=== PATIENT | male | born 1975 | race Caucasian/White ===

== ENCOUNTER 2018-03-01 13:55 | Emergency (ER) | payer BC ==
[~2018-03-01] VITALS: Ht 177.8 cm; Wt 79.4 kg
[2018-03-01 13:55] VITALS: BP 120/79
--- NOTE | 2018-03-01 14:42 | PHYS DOC ---
Past History Past Medical History: Other Past Surgical History: Other Alcohol Use: Heavy Drug Use: Marijuana Adult General Chief Complaint Chief Complaint: DENTAL PROBLEM HPI HPI 42-year-old male presents with right lower quadrant dental pain. The patient has had dental pain off and on for more than a year. He grinds his teeth. The patient woke up this morning with pain in the right lower quadrant. He is unsure if it is a wisdom tooth infection from dental decay. The patient has a surgery for anal fistula scheduled for this week and cannot take ibuprofen. He has been trying to take Tylenol without much effect. He denies fever or chills. Review of Systems Review of Systems Constitutional: Denies fever or chills [] Eyes: Denies change in visual acuity, redness, or eye pain [] HENT: Dental pain[] Respiratory: Denies cough or shortness of breath [] Cardiovascular: No additional information not addressed in HPI [] GI: Denies abdominal pain, nausea, vomiting, bloody stools or diarrhea [] : Denies dysuria or hematuria [] Musculoskeletal: Denies back pain or joint pain [] Integument: Denies rash or skin lesions [] Neurologic: Denies headache, focal weakness or sensory changes [] Endocrine: Denies polyuria or polydipsia [] All other systems were reviewed and found to be within normal limits, except as documented in this note. Allergies Allergies Allergies Coded Allergies Type Severity Reaction Last Updated Verified No Known Drug Allergies 03/01/18 No Physical Exam Physical Exam Constitutional: Well developed, well nourished, no acute distress, non-toxic appearance. [] HENT: Normocephalic, atraumatic, bilateral external ears normal, oropharynx moist, no oral exudates, nose normal. Poor dentition, dental caries a right lower molar, pain with palpation in this area. No obvious abscess.[] Eyes: PERRLA, EOMI, conjunctiva normal, no discharge. [] Neck: Normal range of motion, no tenderness, supple, no stridor. [] Cardiovascular:Heart rate regular rhythm, no murmur [] Lungs & Thorax: Bilateral breath sounds clear to auscultation [] Abdomen: Bowel sounds normal, soft, no tenderness, no masses, no pulsatile masses. [] Skin: Warm, dry, no erythema, no rash. [] Back: No tenderness, no CVA tenderness. [] Extremities: No tenderness, no cyanosis, no clubbing, ROM intact, no edema. [] Neurologic: Alert and oriented X 3, normal motor function, normal sensory function, no focal deficits noted. [] Psychologic: Affect normal, judgement normal, mood normal. [] Current Patient Data Vital Signs Vital Signs Date Time Temp Pulse Resp B/P (MAP) Pulse Ox O2 Delivery O2 Flow Rate FiO2 03/01/18 13:55 98.1 83 18 99 Room Air EKG EKG [] Radiology/Procedures Radiology/Procedures [] Course & Med Decision Making Course & Med Decision Making Pertinent Labs and Imaging studies reviewed. (See chart for details) I injected the patient with 1 mL of 1% lidocaine, and with 1 mL of 0.5% Sensorcaine. He had good relief of his pain. I will also discharge him with a short course of [place] 5/325 as well as Augmentin for 7 days. He is stable for discharge at this time. [] Dragon Disclaimer Dragon Disclaimer This electronic medical record was generated, in whole or in part, using a voice recognition dictation system. Departure Departure: Disposition: HOME, SELF-CARE Condition: IMPROVED Referrals: PCP,UNKNOWN (PCP) Scripts Amoxicillin/Potassium Clav (AUGMENTIN 875-125 TABLET) 1 Each Tablet 1 TAB PO BID for dental infection, #14 TAB Prov: JAMIE SUMNER DO 03/01/18 Hydrocodone Bit/Acetaminophen (NORCO 5-325 TABLET) 1 Each Tablet 1 TAB PO PRN Q6HRS PRN for PAIN, #10 TAB 0 Refills Prov: JAMIE SUMNER DO 03/01/18 JAMIE SUMNER DO Mar 01, 2018 14:42
[2018-03-01] MEDS ORDERED: AMOX1TAB61 PO (15:03)
[2018-03-01] MEDS ORDERED: HYDR-3165 PO (15:03)
== END 2018-03-01 15:15 | disposition home or self-care (01) ==
LOC: ER 13:55
DX: K08.89 Other specified disorders of teeth and supporting structures (principal); K02.9 Dental caries, unspecified; F10.20 Alcohol dependence, uncomplicated; Y90.9 Presence of alcohol in blood, level not specified
CPT/HCPCS: 64400; 99284